=== PATIENT | female | born 1980 | race Caucasian/White ===

== ENCOUNTER → 2020-05-02 | Outpatient (CLI) | payer OTHER ==
--- NOTE | 2020-05-02 16:37 | REPMRS ---
Patient History The patient states she had a clinical breast exam in 04/2020 Baseline Mammogram Patient had first child at age 36. No known family history of cancer. 3D TOMOSYNTHESIS WAS PERFORMED. [facility] lifetime risk for breast cancer is 17.4%. Volpara breast density b. Digital Woman Screen Mammo: May 02, 2020 - Exam #: [id number] Bilateral CC and MLO view(s) were taken. Technologist: Dolly Nails, Technologist No prior studies available for comparison. FINDINGS: The breast tissue is heterogeneously dense. This may lower the sensitivity of mammography. There is a moderate amount of residual fibroglandular tissue which is fairly symmetric. There is no dominant mass, areas of architectural distortion, or clustered microcalcification typical of malignancy. Assessment: BI-RADS/ACR category 1 mammogram. Negative Mammogram. Recommendation Routine screening mammogram in 1 year (for women over age 40). This mammogram was interpreted with the aid of an FDA-approved computer-aided dectection system. Electronically Signed By: Ej Street MD 05/02/20 [id number]
== END ==
LOC: M WHC 15:16
PROVIDERS: ATTEND Nurse Practitioner Family
DX: Z12.31 Encounter for screening mammogram for malignant neoplasm of breast (principal)

== ENCOUNTER → 2020-05-19 | Outpatient (CLI) ==
[~2020-05-19] MED LIST: LEVO100T5
== END ==
LOC: M LABSMTC 11:14
PROVIDERS: ATTEND Anesthesiology
DX: Z01.812 Encounter for preprocedural laboratory examination (principal); Z20.822 Contact with and (suspected) exposure to COVID-19

== ENCOUNTER 2020-05-24 09:17 | Day surgery (SDC) | payer OTHER ==
[~2020-05-24] VITALS: Ht 157.5 cm; Wt 86.6 kg
[~2020-05-24 09:17] MED LIST changes: +NS 1,000 ML IV ONE
[2020-05-24] MEDS ORDERED: LIDOCAINE 2% 100MG/5ML SDV (FOR ANES.) As Ordered ONE (10:11)
[2020-05-24] MEDS ORDERED: propofoL 200 MG/20 ML VIAL As Ordered ONE (10:12)
--- NOTE | 2020-05-24 10:55 | ROOR ---
Patient Name: Bridget Tubbs Procedure Date: 05/24/2020 10:32 AM Date of : 1980 Age: 39 Room: [facility] Gender: Female Note Status: Finalized Procedure: Colonoscopy Indications: Clinically significant diarrhea of unexplained origin (post prandial diarrhea "ever since gallbladder removed") Providers: Logan ODOM MD Referring MD: SHEMAR HINKLE MD Requesting Provider: Medicines: Monitored Anesthesia Care Complications: No immediate complications. Procedure: Pre-Anesthesia Assessment: - The heart rate, respiratory rate, oxygen saturations, blood pressure, adequacy of pulmonary ventilation, and response to care were monitored throughout the procedure. The Colonoscope was introduced through the anus and advanced to 15 cm into the ileum. The colonoscopy was performed without difficulty. The patient tolerated the procedure well. The quality of the bowel preparation was good. Findings: The perianal and digital rectal examinations were normal. Mild sigmoid diverticulosis and small internal hemorrhoids. The colon otherwise appeared normal. The terminal ileum appeared normal. Biopsies for histology were taken with a cold forceps for evaluation of microscopic colitis. Impression: - Mild sigmoid diverticulosis and small internal hemorrhoids. - The entire examined colon is otherwise normal. - The examined portion of the ileum was normal. - Biopsies were taken with a cold forceps for evaluation of microscopic colitis. Recommendation: - Welchol (colesevelam HCl) 2 tabs twice a day with meals. - (the script was sent to your pharmacy on file) - Continue present medications. - Telephone endoscopist for pathology results in 2 weeks. Procedure Code(s): --- Professional --- 99097, Colonoscopy, flexible; with biopsy, single or multiple Diagnosis Code(s): --- Professional --- R19.7, Diarrhea, unspecified CPT copyright 2019 [employer]. All rights reserved. The codes documented in this report are preliminary and upon performing arts technicians review may be revised to meet current compliance requirements. Logan Odom MD Logan ODOM MD 05/24/2020 10:55:45 AM Electronically signed by Logan ODOM MD Number of Addenda: 0 Note Initiated On: 05/24/2020 10:32 AM Estimated Blood Loss: Estimated blood loss: none.
[2020-05-24 11:15] VITALS: BP 132/64
== END 2020-05-24 11:15 | disposition home or self-care (01) ==
LOC: M OPP 09:17
PROVIDERS: ATTEND Internal Medicine Gastroenterology
DX: R19.7 Diarrhea, unspecified (principal); K62.5 Hemorrhage of anus and rectum; D12.6 Benign neoplasm of colon, unspecified; K57.30 Diverticulosis of large intestine without perforation or abscess without bleeding; K64.8 Other hemorrhoids; E03.9 Hypothyroidism, unspecified; Z79.899 Other long term (current) drug therapy; Z80.8 Family history of malignant neoplasm of other organs or systems

== ENCOUNTER 2020-11-05 00:23 | Emergency (ER) | payer OTHER ==
[~2020-11-05] VITALS: Ht 157.5 cm; Wt 87.5 kg
[~2020-11-05 00:23] MED LIST changes: -NS 1,000 ML IV ONE
[2020-11-05 07:04] LABS: BASO % 0.7 % (0.0-1.0); EOS # 0.2 10^3/uL (0.0-0.5); EOS % 3.2 % (0.0-3.0); HEMATOCRIT 40.4 % (36.0-47.0); LYMPH # 1.6 10^3/uL (1.5-5.0); LYMPH % 28.2 % (24.0-44.0); MEAN CORPUSCULAR HEMOGLOBIN 28.6 pg (27.0-33.0); MEAN CORPUSCULAR HGB CONC 32.2 g/dl (32.0-36.5); MONO # 0.5 10^3/uL (0.0-0.8); MONO % 8.1 % (2.0-8.0); NEUTROPHILS # 3.3 10^3/uL (1.5-8.5); NEUTROPHILS % 59.6 % (36.0-66.0); PLATELET COUNT, AUTOMATED 298 10^3/uL (150-450); RED BLOOD COUNT 4.54 10^6/uL (4.00-5.40); WHITE BLOOD COUNT 5.6 10^3/uL (4.0-10.0)
[2020-11-05 07:15] LABS: INR 1.04; PARTIAL THROMBOPLASTIN TIME 21.7 SECONDS (24.2-38.5); PROTHROMBIN TIME 13.8 SECONDS (12.5-14.3)
[2020-11-05 07:22] LABS: HCG, SERUM QUALITATIVE NEGATIVE (NEGATIVE)
[2020-11-05 07:25] LABS: ALBUMIN 3.6 GM/DL (3.2-5.2); ALT/SGPT 21 U/L (12-78); BILIRUBIN,DIRECT < 0.1 MG/DL (0.0-0.2); BILIRUBIN,TOTAL 0.3 MG/DL (0.2-1.0); BLOOD UREA NITROGEN 14 MG/DL (7-18); CALCIUM LEVEL 8.9 MG/DL (8.5-10.1); CARBON DIOXIDE LEVEL 28 MEQ/L (21-32); CHLORIDE LEVEL 109 MEQ/L (98-107); GLOMERULAR FILTRATION RATE > 60.0 (>58); GLUCOSE, FASTING 89 MG/DL (70-100); LIPASE 209 U/L (73-393); POTASSIUM SERUM 4.1 MEQ/L (3.5-5.1); SODIUM LEVEL 141 MEQ/L (136-145); TOTAL PROTEIN 7.1 GM/DL (6.4-8.2)
[2020-11-05] MEDS ORDERED: ANUS25SU PR (07:54)
[2020-11-05 08:15] VITALS: BP 128/81
== END 2020-11-05 08:45 | disposition home or self-care (01) ==
LOC: M ED 00:23
DX: K64.8 Other hemorrhoids (principal); K92.2 Gastrointestinal hemorrhage, unspecified; E03.9 Hypothyroidism, unspecified; Z79.890 Hormone replacement therapy

== ENCOUNTER → 2022-07-17 | Outpatient (CLI) | payer OTHER ==
[~2022-07-17] MED LIST changes: +ANUS25SU PR
[2022-07-17 15:44] LABS: C REACTIVE PROTEIN QUANTITATIV < 0.40 MG/DL (<1.0)
[2022-07-17 15:46] LABS: RHEUMATOID FACTOR QUANT < 3.5 IU/ML (<14)
[2022-07-17 15:47] LABS: TOTAL 25(OH) VITAMIN D 60.5 NG/ML (20.0-100.0)
[2022-07-17 16:12] LABS: HIV 1&2 SCREEN CENTAUR NEGATIVE (NEGATIVE)
== END ==
LOC: M LAB 14:25
PROVIDERS: ATTEND Internal Medicine Pulmonary Disease
DX: R91.8 Other nonspecific abnormal finding of lung field (principal)

== ENCOUNTER → 2022-08-13 | Outpatient (CLI) | payer OTHER | LOC: M PLARAD 07:39 | PROVIDERS: ATTEND Internal Medicine Pulmonary Disease | DX: R91.8 Other nonspecific abnormal finding of lung field (principal); Z90.49 Acquired absence of other specified parts of digestive tract | CPT/HCPCS: 78815; A9552 ==

== ENCOUNTER 2022-09-26 06:10 | Day surgery (SDC) | payer OTHER ==
[~2022-09-26] VITALS: Ht 157.5 cm; Wt 90.4 kg
[~2022-09-26 06:10] MED LIST changes: +DULO30CA9 PO; +ERGO500029 PO; +GABA-1171 PO; +IBUP80TA PO; +PERCOCET PO
[2022-09-26] MEDS ORDERED: LR 1,000 ML IV SCH ×2 (06:20→08:25)
[2022-09-26] MEDS ORDERED: ACET-897 PO (06:51)
[2022-09-26] MEDS ORDERED: propofoL 200 MG/20 ML VIAL As Ordered ONE (07:13)
[2022-09-26] MEDS ORDERED: MIDAZOLAM INJ 2MG/2ML VIAL As Ordered ONE (07:13)
[2022-09-26] MEDS ORDERED: ROCURONIUM BROMIDE 50MG/5ML VIAL As Ordered ONE (07:13)
[2022-09-26] MEDS ORDERED: ONDANSETRON 4MG 2ML VIAL As Ordered ONE (07:13)
[2022-09-26] MEDS ORDERED: fentaNYL 100 MCG/2 ML INJECTION As Ordered ONE (07:13)
[2022-09-26] MEDS ORDERED: LIDOCAINE 2% 100MG/5ML SDV (FOR ANES.) As Ordered ONE (07:13)
[2022-09-26] MEDS ORDERED: THROMBIN 5,000 UNITS VIAL As Ordered ONE (07:21)
[2022-09-26] MEDS ORDERED: EPINEPHrine INJ 1 MG/ML 1ML AMP As Ordered ONE (07:21)
[2022-09-26] MEDS ORDERED: CETACAINE SPRAY 5GM As Ordered ONE (07:21)
[2022-09-26] MEDS ORDERED: ACETAMINOPHEN 1000MG 100ML IV BAG As Ordered ONE (07:51)
[2022-09-26] MEDS ORDERED: SUGAMMADEX SODIUM 500 MG/5 ML VIAL (BRIDION) As Ordered ONE (08:03)
[2022-09-26] MEDS ORDERED: fentaNYL 100 MCG/2 ML INJECTION IV PRN (08:25)
[2022-09-26] MEDS ORDERED: oxyCODONE 5MG TAB PO PRN (08:25)
[2022-09-26] MEDS ORDERED: ONDANSETRON 4MG 2ML VIAL IV PRN (08:25)
[2022-09-26] MEDS ORDERED: HYDROMORPHONE HCL 0.5 MG/ 0.5 ML SYRINGE IV PRN (08:25)
[2022-09-26 09:30] VITALS: BP 145/90; TEMP 97.2; O2SAT 100
== END 2022-09-26 09:40 | disposition home or self-care (01) ==
LOC: M SDC 06:10
PROVIDERS: ATTEND Internal Medicine Pulmonary Disease
DX: R59.0 Localized enlarged lymph nodes (principal); E03.9 Hypothyroidism, unspecified; F32.A Depression, unspecified; E66.9 Obesity, unspecified; M79.7 Fibromyalgia; J30.2 Other seasonal allergic rhinitis; E55.9 Vitamin D deficiency, unspecified; M50.30 Other cervical disc degeneration, unspecified cervical region; M54.9 Dorsalgia, unspecified; G89.29 Other chronic pain; Z79.899 Other long term (current) drug therapy; Z79.890 Hormone replacement therapy; Z87.891 Personal history of nicotine dependence
CPT/HCPCS: 31629; 31652; 71045; 81025; 88173; 88305; J0131; J1100; J2250; J2405; J3010

== ENCOUNTER 2023-02-27 08:26 | Day surgery (SDC) | payer OTHER ==
[~2023-02-27] VITALS: Ht 157.5 cm; Wt 93.9 kg
[~2023-02-27 08:26] MED LIST changes: +ACET-897 PO; +CYCL5TAB PO; +DULO1CAP6 PO; +GABA-282 PO; +LEVO125T4 PO; +LR 1,000 ML IV SCH
[2023-02-27] MEDS ORDERED: propofoL 200 MG/20 ML VIAL As Ordered ONE (09:59)
[2023-02-27] MEDS ORDERED: MIDAZOLAM INJ 2MG/2ML VIAL As Ordered ONE (09:59)
[2023-02-27] MEDS ORDERED: LIDOCAINE 2% 100MG/5ML SDV (FOR ANES.) As Ordered ONE (09:59)
[2023-02-27] MEDS ORDERED: ONDANSETRON 4MG 2ML VIAL As Ordered ONE (09:59)
[2023-02-27] MEDS ORDERED: fentaNYL 100 MCG/2 ML INJECTION As Ordered ONE (09:59)
[2023-02-27] MEDS ORDERED: ROCURONIUM BROMIDE 50MG/5ML VIAL As Ordered ONE (09:59)
[2023-02-27] MEDS ORDERED: SUGAMMADEX SODIUM 500 MG/5 ML VIAL (BRIDION) As Ordered ONE (10:00)
[2023-02-27] MEDS ORDERED: THROMBIN 5,000 UNITS VIAL As Ordered ONE (10:33)
[2023-02-27] MEDS ORDERED: CETACAINE SPRAY 5GM As Ordered ONE (10:34)
[2023-02-27] MEDS ORDERED: EPINEPHrine 1MG/10ML SYRINGE 1.5IN As Ordered ONE (10:34)
[2023-02-27] MEDS ORDERED: KETOROLAC 60MG 2ML VIAL As Ordered ONE (11:13)
[2023-02-27] MEDS ORDERED: oxyCODONE 5MG TAB PO PRN (11:20)
[2023-02-27] MEDS ORDERED: fentaNYL 100 MCG/2 ML INJECTION IV PRN (11:20)
[2023-02-27] MEDS ORDERED: LR 1,000 ML IV SCH (11:20)
[2023-02-27] MEDS ORDERED: ONDANSETRON 4MG 2ML VIAL IV PRN (11:20)
[2023-02-27 12:40] VITALS: BP 123/66; TEMP 97.7; O2SAT 98
== END 2023-02-27 12:44 | disposition home or self-care (01) ==
LOC: M SDC 08:26
PROVIDERS: ATTEND Internal Medicine Pulmonary Disease
DX: R59.0 Localized enlarged lymph nodes (principal); E03.9 Hypothyroidism, unspecified; M79.7 Fibromyalgia; E66.9 Obesity, unspecified; Z79.890 Hormone replacement therapy; Z68.39 Body mass index [BMI] 39.0-39.9, adult
CPT/HCPCS: 31629; 31654; 71045; 88173; 88305; J0171; J1100; J1885; J2250; J2405; J3010

== ENCOUNTER → 2023-10-11 | Outpatient (CLI) | payer OTHER ==
[~2023-10-11] MED LIST changes: -LR 1,000 ML IV SCH
[2023-10-11 09:20] VITALS: TEMP 96.1
[2023-10-11 09:50] LABS: HEMATOCRIT 41.1 % (36.0-47.0); HEMOGLOBIN 13.1 g/dl (12.0-15.5); MEAN CORPUSCULAR HEMOGLOBIN 28.1 pg (27.0-33.0); MEAN CORPUSCULAR HGB CONC 31.9 g/dl (32.0-36.5); MEAN CORPUSCULAR VOLUME 88.2 fl (80.0-96.0); PLATELET COUNT, AUTOMATED 325 10^3/uL (150-450); RED BLOOD COUNT 4.66 10^6/uL (4.00-5.40); WHITE BLOOD COUNT 6.5 10^3/uL (4.0-10.0)
[2023-10-11 10:19] LABS: INR 1.04; PROTHROMBIN TIME 13.3 SECONDS (12.5-14.5)
[2023-10-11 11:50] LABS: APPEARANCE, CSF CLEAR (CLEAR); COLOR, CSF COLORLESS (COLORLESS); CSF TUBE# CELL CNT TUBE 1
[2023-10-11 12:09] LABS: CSF TUBE# TP TUBE 1; TOTAL PROTEIN,CSF 48.3 MG/DL (15-45)
[2023-10-11 12:11] LABS: CSF TUBE# GLU TUBE 1
[2023-10-11 12:45] VITALS: BP 121/58; O2SAT 99
== END ==
LOC: M IRPRO 09:09
PROVIDERS: ATTEND Psychiatry & Neurology Neurology
DX: G35 Multiple sclerosis (principal)

== ENCOUNTER → 2023-10-15 | Outpatient (CLI) | payer OTHER | LOC: M RAD 15:56 | PROVIDERS: ATTEND Student in an Organized Health Care Education/Training Program | DX: S82.62XD Displaced fracture of lateral malleolus of left fibula, subsequent encounter for closed fracture with routine healing (principal); Y92.9 Unspecified place or not applicable; Y93.9 Activity, unspecified ==

== ENCOUNTER 2023-12-09 15:22 | Outpatient (CLI) | payer OTHER ==
[~2023-12-09] VITALS: Ht 157.5 cm; Wt 93.2 kg
[2023-12-09 15:30] VITALS: BP 146/87; O2SAT 100
[2023-12-09] MEDS: methylPREDNISolone 1,000 MG, VIAL MATE ADAPTER 1 EACH in NS 250 ML IV ONE (15:39)
[2023-12-09] MEDS ORDERED: TIZA2CAP3 PO (16:12)
[2023-12-09 17:00] VITALS: BP 138/84; O2SAT 99
== END 2023-12-09 17:00 ==
LOC: M INFU 15:22
PROVIDERS: ATTEND Psychiatry & Neurology Neurology
DX: G35 Multiple sclerosis (principal)
CPT/HCPCS: 96365; J2919

== ENCOUNTER 2023-12-10 15:23 | Outpatient (CLI) | payer OTHER ==
[~2023-12-10 15:23] MED LIST changes: +TIZA2CAP3 PO
[2023-12-10] MEDS: methylPREDNISolone 1,000 MG, VIAL MATE ADAPTER 1 EACH in NS 250 ML IV ONE (15:37)
[2023-12-10 16:02] VITALS: BP 139/74; O2SAT 97
[2023-12-10 16:50] VITALS: BP 142/75; O2SAT 99
== END 2023-12-10 15:35 ==
LOC: M INFU 15:23
PROVIDERS: ATTEND Psychiatry & Neurology Neurology
DX: G35 Multiple sclerosis (principal)
CPT/HCPCS: 96365; J2919

== ENCOUNTER 2023-12-11 15:30 | Outpatient (CLI) | payer OTHER ==
[2023-12-11] MEDS: methylPREDNISolone 1,000 MG, VIAL MATE ADAPTER 1 EACH in NS 250 ML IV ONE (15:35)
[2023-12-11 16:45] VITALS: BP 157/72; O2SAT 100
== END 2023-12-11 16:48 ==
LOC: M INFU 15:30
PROVIDERS: ATTEND Psychiatry & Neurology Neurology
DX: G35 Multiple sclerosis (principal)
CPT/HCPCS: 96365; J2919

== ENCOUNTER 2023-12-12 16:00 | Outpatient (CLI) | payer OTHER ==
[2023-12-12] MEDS: methylPREDNISolone 1,000 MG, VIAL MATE ADAPTER 1 EACH in NS 250 ML IV ONE (16:10)
[2023-12-12 16:11] VITALS: BP 141/78; O2SAT 98
== END 2023-12-12 17:17 ==
LOC: M INFU 16:00
PROVIDERS: ATTEND Psychiatry & Neurology Neurology
DX: G35 Multiple sclerosis (principal)
CPT/HCPCS: 96365; J2919

== ENCOUNTER 2023-12-13 15:50 | Outpatient (CLI) | payer OTHER ==
[~2023-12-13] VITALS: Ht 154.9 cm; Wt 93.0 kg
[2023-12-13 15:45] VITALS: BP 158/75; O2SAT 100
[2023-12-13] MEDS: methylPREDNISolone 1,000 MG, VIAL MATE ADAPTER 1 EACH in NS 250 ML IV ONE (15:54)
[2023-12-13 17:00] VITALS: BP 166/74; O2SAT 100
== END 2023-12-13 17:00 ==
LOC: M INFU 15:50
PROVIDERS: ATTEND Psychiatry & Neurology Neurology
DX: G35 Multiple sclerosis (principal)
CPT/HCPCS: 96365; J2919

== ENCOUNTER → 2023-12-17 | Outpatient (REF) | LOC: M PLAIMG 10:27 | PROVIDERS: ATTEND Internal Medicine | DX: R52 Pain, unspecified (principal) ==

== ENCOUNTER → 2024-03-06 | Outpatient (CLI) | payer OTHER ==
[~2024-03-06] MED LIST changes: -CYCL5TAB PO; +CYCL5TAB4 PO; +GABA-1172 PO; -GABA-282 PO
== END ==
LOC: M SLEEP HO 02-04 12:53
PROVIDERS: ATTEND Internal Medicine Pulmonary Disease
DX: G47.33 Obstructive sleep apnea (adult) (pediatric) (principal)

== ENCOUNTER → 2024-12-18 | Outpatient (CLI) | payer OTHER | LOC: M PLARAD 15:04 | PROVIDERS: ATTEND Neurological Surgery | DX: M48.02 Spinal stenosis, cervical region (principal) ==

== ENCOUNTER → 2025-04-09 | Outpatient (CLI) | payer OTHER | LOC: M WHC 10:05 | PROVIDERS: ATTEND Family Medicine | DX: Z12.31 Encounter for screening mammogram for malignant neoplasm of breast (principal) ==